=== PATIENT | female | born 1995 | race Two or more races ===

== ENCOUNTER 2024-04-20 11:08 | Emergency (ER) | payer OTHER ==
[~2024-04-20] VITALS: Ht 167.6 cm; Wt 54.4 kg
[2024-04-20] MEDS ORDERED: WELLBUTRIN XL150 M1 PO (11:15)
[2024-04-20] MEDS ORDERED: ADDERALL 10 MG10 MG (11:15)
[2024-04-20] MEDS ORDERED: SUMATRIPTAN SUCCINATE 6 MG/0.5 ML VIAL SUBCUTANEO ONE ×2 (13:15→13:45)
[2024-04-20] MEDS ORDERED: KETOROLAC TROMETHAMINE 60 MG VIAL IM ONE ×2 (13:15→13:45)
[2024-04-20 14:37] LABS: HEMATOCRIT 39.4 % (36.0-45.00); HEMOGLOBIN 13.2 g/dL (12.0-15.00); MEAN CELL VOLUME 90.1 fL (80.00-100.00); MEAN CORPUSCULAR HEMOGLOBIN 30.2 pg (27.00-32.0); MEAN CORPUSCULAR HGB CONC 33.5 g/dl (32.0-36.0); PLATELET COUNT 255 K/uL (150-450); RED BLOOD COUNT 4.37 M/uL (4.00-6.00); RED CELL DISTRIBUTION WIDTH 13.4 % (11.5-14.5)
[2024-04-20 15:06] LABS: BILIRUBIN TOTAL 0.26 mg/dL (0.3-1.2); CALCIUM 9.4 mg/dL (8.5-10.1); CREATININE SERUM 0.72 mg/dL (0.55-1.02); GFR 97.17; GLOBULINA 3.3 G/DL (2.4-3.5); TOTAL PROTEIN 7.3 gm/dL (6.4-8.2)
== END 2024-04-20 18:08 | disposition home or self-care (01) ==
LOC: ER 11:10
PROVIDERS: Emergency Medicine
DX: R51.9 Headache, unspecified (principal)